=== PATIENT | female | born 1990 | race Caucasian/White ===

== ENCOUNTER 2016-12-09 04:19 | Day surgery (SDC) | payer OTHER ==
--- NOTE | ~2016-12-09 | OP ---
Record Of Operation [facility] [address] [place]. [address] NAME: WILNER ELENA : 88 STATUS : [facility]#: [id number] AGE: 26 ADM/REG DATE : 12/09/16 MR#: [id number] REPORT SERV DATE: 12/11/16 DICTATED BY: WANDA ANDINO II DATE: 12/11/16 REPORT STATUS : Draft TRANSCRIBED BY: MODDenise DATE: 12/11/16 DATE OF PROCEDURE: 12/09/2016 PREOPERATIVE DIAGNOSES: 1. Moderate degenerative disk disease L5-S1. 2. 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 POSTOPERATIVE DIAGNOSES: 1. Moderate degenerative disk disease L5-S1. 2. 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 PROCEDURE: 1. L5-S1 left microdiskectomy. 2. Use of the microscope and stereotactic spinal imaging. SURGEON: Wanda Andino M.D. FLUIDS: 1200 mL LR. ESTIMATED BLOOD LOSS: 10 mL. DRAINS: None. COMPLICATIONS: None. ANTIBIOTIC: Preoperatively. PREOPERATIVE HISTORY: This is a very friendly, 26-year-old female, who is a student, who reports severe pain radiating into the left buttock and radiating into the posterior thigh and leg. She also has associated numbness and tingling. The pain into the right leg is not as severe. We discussed the pros and cons of surgery. She was found to have a very large centrolateral HNP. We discussed again the risks which include, but not limited to development of severe back pain down the road as well as an approximately 10% risk of a recurrent disk herniation. We also discussed a small chance of infection and nerve damage. DESCRIPTION OF PROCEDURE: After informed consent was obtained, the patient was brought to the operating room at her request and general anesthesia achieved. She was placed in the prone position. The back was prepped and draped in a sterile fashion. The stereotactic spinal pin was placed into the right iliac crest followed by completion of the intraoperative CT scan. The stereotactic guidance was then used throughout the case. At this point, the minimally invasive incision was performed on the left at L5-S1. The laminotomy was performed under microscopic visualization. Please note, we used the 20 mm tubular retractor. With the microscope in place and using stereotactic guidance, the high- Record Of Operation [facility] [address] [place]. [address] NAME: WILNER ELENA : 88 STATUS : [facility]#: [id number] AGE: 26 ADM/REG DATE : 12/09/16 MR#: [id number] REPORT SERV DATE: 12/11/16 DICTATED BY: WANDA ANDINO II DATE: 12/11/16 REPORT STATUS : Draft TRANSCRIBED BY: KISHORE DATE: 12/11/16 speed bur was used to thin the lamina, and the curved curette was used to detach ligamentum flavum. The dura was then well identified. The S1 nerve root was then identified. The large central lateral herniation was then identified. Bipolar electrocautery was used. Gentle retraction was now performed and the traumatic annulotomy identified. The several large fragments were now delivered through this traumatic annulotomy. We were also able to pull a fragment of disk from the right centrolateral portion of the canal. The area was now irrigated. The S1 nerve root was now acceptably decompressed. Following irrigation, Depo- Medrol was placed over the nerve root followed by standard closure. The patient was then extubated and transferred to PACU in stable condition. PAT/KISHORE Wanda Andino II, M.D. / [id number] CC: Benson Benitez II, CALEB S
[~2016-12-09 04:19] MED LIST: CELEXA20 PO; NORCO1 TAB PO
== END 2016-12-09 10:58 | disposition home or self-care (01) ==
LOC: SDC 04:19
PROVIDERS: Orthopaedic Surgery
PROC: 01NB0ZZ Release Lumbar Nerve, Open Approach (ICD-10-PCS; 2016-12-09)
PROC: 0SB20ZZ Excision of Lumbar Vertebral Disc, Open Approach (ICD-10-PCS; principal; 2016-12-09 05:45)
DX: M51.17 Intervertebral disc disorders with radiculopathy, lumbosacral region (principal); J40 Bronchitis, not specified as acute or chronic; F32.9 Major depressive disorder, single episode, unspecified; F17.210 Nicotine dependence, cigarettes, uncomplicated; Z79.891 Long term (current) use of opiate analgesic; Z79.899 Other long term (current) drug therapy; Z98.890 Other specified postprocedural states; Z83.3 Family history of diabetes mellitus; Z82.49 Family history of ischemic heart disease and other diseases of the circulatory system
CPT/HCPCS: 84703; 88304; 88311; A9270-GY; J0690; J1030; J1170; J1885; J2250; J2405; J2710; J3010